=== PATIENT | female | born 1950 | race Caucasian/White ===

== ENCOUNTER 2016-06-05 14:00 | Inpatient (IN) | payer OTHER, MEDICARE ==
[~2016-06-05] VITALS: Ht 167.6 cm; Wt 87.3 kg
[2016-06-21] MEDS ORDERED: MORP1TAB24 PO (09:48)
[2016-06-21] MEDS ORDERED: FLUO20CA4 PO (09:48)
[2016-06-21] MEDS ORDERED: METF500T4 PO (09:48)
[2016-06-21] MEDS ORDERED: HYDR-3583 PO (09:48)
[2016-06-21] MEDS ORDERED: OMEP20TA PO (09:48)
[2016-06-21] MEDS ORDERED: ALPR.25 PO (09:48)
[2016-06-21] MEDS ORDERED: ONDA1TAB16 PO (09:48)
[2016-06-21] MEDS ORDERED: TRIA37.5 PO (09:48)
[2016-06-21] MEDS ORDERED: LOSA50TA PO (09:48)
[2016-07-06] MEDS ORDERED: INSULIN HUMAN REGULAR 1,000 UNITS/10 ML VIAL SQ PRN (07:30)
[2016-07-06] MEDS: CHLORHEXIDINE GLUCONATE 4% SOLN 120 ML BTL TOP SCH (07:30)
[2016-07-06] MEDS: SODIUM CHLORID 0.9% 500 ML IV SCH (07:30)
[2016-07-06] MEDS: LACTATED RINGER'S 1000 ML IV SCH (07:30)
[2016-07-06] MEDS ORDERED: METOPROLOL TARTRATE 25 MG TAB PO PRN (07:30)
[2016-07-06] MEDS ORDERED: ceFAZolin 2 GM PREMIX 50 ML IV SCH (07:30)
[2016-07-06] MEDS ORDERED: VANCOMYCIN 1000 MG/NS 250 ML (for <70 kg) IV SCH ×2 (07:30)
[2016-07-06] MEDS ORDERED: VITA10007 PO (07:35)
[2016-07-06 07:37] VITALS: BP 181/94; PULSE 89; RESP 18; TEMP 97.9; O2SAT 95
[2016-07-06] MEDS ORDERED: GENTAMICIN SULFATE 80 MG/2 ML VIAL ONE (08:30)
[2016-07-06] MEDS ORDERED: ACETAMINOPHEN 1000 MG/100 ML VIAL IV ONE (08:40)
[2016-07-06] MEDS ORDERED: FAMOTIDINE 20 MG/2 ML VIAL ONE (08:40)
[2016-07-06] MEDS ORDERED: ONDANSETRON HCL 4 MG/2 ML VIAL ONE (08:40)
[2016-07-06] MEDS ORDERED: fentaNYL CITRATE 250 MCG/5 ML AMP ONE (08:59)
[2016-07-06] MEDS ORDERED: MIDAZOLAM HCL 2 MG/2 ML VIAL ONE (09:05)
--- NOTE | 2016-07-06 11:28 | HHI.PR ---
Immediate Post Op Note Procedure Date: Jul 06, 2016 Pre Op Diagnosis: L Hip Severe OA Post Op Diagnosis: Same Surgeon: Stanley High MD Redeye Gunner(s): Radha Ricketts PA-C Procedure: L THR Complications: None Specimen(s) removed: L Hip Femoral Head Estimated blood loss: 600cc Anesthesia: General Drains: None Patient to: PACU Patient Condition: Good Implant/Devices: SEE IMPLANT LOG (if applicable) Date/Time of Procedure: SEE SURGICAL CARE RECORD Stanley High MD Jul 06, 2016 11:28
[2016-07-06] MEDS ORDERED: ZOLPIDEM TARTRATE 5 MG TAB PO PRN (11:30)
[2016-07-06] MEDS ORDERED: Post-op Orders (for Pharmacy) MISC XX ONE (11:30)
[2016-07-06] MEDS ORDERED: ACETAMINOPHEN/HYDROcodone 325 MG/10 MG TAB PO PRN (11:30)
[2016-07-06] MEDS ORDERED: ONDANSETRON HCL 4 MG/2 ML VIAL IVP PRN (11:30)
[2016-07-06] MEDS: SODIUM CHLORIDE 0.9% FLUSH 5 ML FLUSH IVF SCH ×2 (11:30→20:57)
[2016-07-06] MEDS ORDERED: SODIUM CHLORIDE 0.9% FLUSH 5 ML FLUSH IVF PRN (11:30)
[2016-07-06] MEDS ORDERED: ALUMINUM/MAGNESIUM/SIMETH 30 ML CUP PO PRN (11:30)
[2016-07-06] MEDS ORDERED: WALKER WHEELS/F1 MIS (11:35)
[2016-07-06] MEDS ORDERED: BEDSIDE COMMODE1 MI1 (11:35)
[2016-07-06] MEDS ORDERED: *morphine SULFATE 8 MG/ML PERIprocedure ONLY ONE ×3 (11:51→12:41)
[2016-07-06] MEDS ORDERED: ONDANSETRON HCL 4 MG/2 ML VIAL IV PUSH ONE (12:00)
[2016-07-06] MEDS ORDERED: NEOSTIGMINE 3 MG/3 ML SYR IV ONE (12:00)
[2016-07-06] MEDS ORDERED: LACTATED RINGER'S 1000 ML INJ 1,000 ML IV ONE (12:00)
[2016-07-06] MEDS ORDERED: PROPOFOL 200 MG/20 ML AMP IV ONE (12:00)
[2016-07-06] MEDS: LACTATED RINGER'S 1000 ML INJ 1,000 ML IV SCH (12:10)
[2016-07-06] MEDS ORDERED: DO NOT ADM ANY ANTICOAGULANT DRUGS XX PRN (12:15)
[2016-07-06] MEDS ORDERED: PILL SPLITTER OTHER PRN (12:30)
[2016-07-06] MEDS: FLUoxetine HCL 20 MG CAP PO SCH ×2 (13:00→16:01)
[2016-07-06] MEDS: ACETAMINOPHEN/HYDROcodone 325 MG/10 MG TAB PO PRN ×2 (14:40→20:53)
[2016-07-06] MEDS: ALPRAZolam 0.25 MG TAB PO PRN (16:01)
--- NOTE | 2016-07-06 16:04 | RADRPT ---
EXAM DATE/TIME: 07/06/2016 12:26 [place] COMPARISON: No previous studies available for comparison. INDICATIONS : Post left hip arthroplasty MEDICAL HISTORY : Arthritis. SURGICAL HISTORY : None. ENCOUNTER: Initial ACUITY: 1 day PAIN SCORE: Non-responsive. LOCATION: Left Hip FINDINGS: A lateral view of the left hip with AP pelvis was obtained. Left total arthroplasty. The femoral and acetabular components are appropriately positioned without fracture. CONCLUSION: Appropriate postoperative appearance of the left hip status post total arthroplasty. Dangelo Lopez MD on July 06, 2016 at 16:01 Board Certified Radiologist. This report was verified electronically.
[2016-07-06 16:12] VITALS: BP 116/69; PULSE 98; RESP 16; TEMP 96.9; O2SAT 97
[2016-07-06 20:23] VITALS: BP 109/57; PULSE 95; RESP 20; TEMP 97.7; O2SAT 92
[2016-07-06] MEDS: MORPHINE SULFATE 15 MG CONTROLLED RELEASE TAB PO SCH (20:52)
[2016-07-06] MEDS: PANTOPRAZOLE SOD 20 MG DELAYED RELEASE TAB PO SCH (20:53)
[2016-07-06] MEDS: metFORMIN HCL 500 MG TAB PO SCH (20:57)
[2016-07-06] MEDS: MORPHINE SULFATE 4 MG/ML INJ IV PRN (23:32)
[2016-07-07] MEDS: SODIUM CHLORID 0.9% 500 ML IV SCH (00:10)
[2016-07-07 00:32] VITALS: BP 130/58; PULSE 96; RESP 20; TEMP 96.7; O2SAT 92
[2016-07-07] MEDS: MORPHINE SULFATE 4 MG/ML INJ IV PRN (04:35)
[2016-07-07 04:45] VITALS: BP 148/67; PULSE 107; RESP 19; TEMP 100.1; O2SAT 93
[2016-07-07 05:55] LABS: HEMATOCRIT 27.3 % (35.0-46.0); REVIEW FLAG FINAL
[2016-07-07 06:03] LABS: INTERNATIONAL NORMALIZED RATIO 1.2 RATIO; PROTHROMBIN TIME - PATIENT 13.4 SEC (9.8-11.6)
[2016-07-07] MEDS: ALPRAZolam 0.25 MG TAB PO PRN ×2 (06:48→14:35)
--- NOTE | 2016-07-07 06:53 | PD.ORT.PN ---
Subjective Subjective Remarks pt complains of post op left hip pain was on morphine and norco pre-operatively Objective Vitals Vital Signs Date Time Temp Pulse Resp B/P Pulse Ox O2 Delivery O2 Flow Rate FiO2 07/07/16 04:45 100.1 107 19 148/67 93 07/07/16 00:32 96.7 96 20 130/58 92 07/06/16 20:23 97.7 95 20 109/57 92 07/06/16 16:12 96.9 98 16 116/69 97 07/06/16 15:15 97.7 102 16 96 Nasal Cannula 2 07/06/16 14:50 Nasal Cannula 2 07/06/16 14:45 99 16 146/77 91 Room Air 07/06/16 14:00 94 16 144/68 94 Room Air 07/06/16 13:45 96 15 109/48 94 Room Air 07/06/16 13:30 96 15 121/68 93 Room Air 07/06/16 13:15 91 15 120/68 97 Nasal Cannula 2 07/06/16 13:00 92 15 124/72 97 Nasal Cannula 2 07/06/16 12:30 87 15 122/62 99 Nasal Cannula 3 07/06/16 12:15 87 15 143/77 99 Nasal Cannula 3 07/06/16 12:00 89 15 136/86 99 Nasal Cannula 3 07/06/16 11:45 99 15 118/81 99 Nasal Cannula 3 07/06/16 11:36 97.4 100 15 145/87 93 Nasal Cannula 4 07/06/16 07:37 97.9 89 18 181/94 95 I/O 07/06/16 07/06/16 07/06/16 07/07/16 07/07/16 07/07/16 06:59 14:59 22:59 06:59 14:59 22:59 Intake Total 1680 ml 400 ml Output Total 950 ml Balance 730 ml 400 ml Intake Oral 240 ml IV Total 280 ml 160 ml Other 1400 ml Output Urine Total 350 ml Estimated Blood Loss 600 ml # Voids 1 1 # Bowel Movements 1 Result Diagram: 07/07/16 0448 Other Results Laboratory Tests Test 07/07/16 04:48 Prothrombin Time 13.4 SEC (9.8-11.6) Prothromb Time International 1.2 RATIO Ratio Objective Remarks also seen by Dr. Stanley High left hip dressings dry and intact canvas knee splint in place no calf tenderness Assessment & Plan Assessment and Plan POD #1 s/p L PEGGY PT-WBAT coumadin for dvt prop- check INR on discharge for dose anticipate d/c to SNF on Sunday, 3007 form and pain rx (norco 10) in chart, also was on morphine pre-operatively Radha Ricketts Jul 07, 2016 06:53
[2016-07-07] MEDS: CHLORHEXIDINE GLUCONATE 4% SOLN 120 ML BTL TOP SCH (07:30)
[2016-07-07] MEDS: LACTATED RINGER'S 1000 ML IV SCH (07:30)
[2016-07-07 08:00] VITALS: BP 126/73; PULSE 116; RESP 18; TEMP 97; O2SAT 94
[2016-07-07] MEDS: ONDANSETRON ODT 4 MG TAB PO PRN ×2 (08:24→21:47)
[2016-07-07] MEDS: LOSARTAN 50 MG TAB PO SCH (08:25)
[2016-07-07] MEDS: ACETAMINOPHEN/HYDROcodone 325 MG/10 MG TAB PO PRN ×3 (08:25→21:45)
[2016-07-07] MEDS: FLUoxetine HCL 20 MG CAP PO SCH ×3 (08:25→17:07)
[2016-07-07] MEDS: PANTOPRAZOLE SOD 20 MG DELAYED RELEASE TAB PO SCH ×2 (08:26→21:43)
[2016-07-07] MEDS: MORPHINE SULFATE 15 MG CONTROLLED RELEASE TAB PO SCH ×2 (08:26→21:44)
[2016-07-07] MEDS: metFORMIN HCL 500 MG TAB PO SCH ×2 (08:27→21:43)
[2016-07-07] MEDS: LACTATED RINGER'S 1000 ML INJ 1,000 ML IV SCH ×2 (08:42)
[2016-07-07] MEDS: SODIUM CHLORIDE 0.9% FLUSH 5 ML FLUSH IVF SCH ×2 (08:42→21:44)
[2016-07-07] MEDS ORDERED: WARFARIN SOD 5 MG TAB PO ONE (11:00)
[2016-07-07 12:00] VITALS: BP 136/66; PULSE 99; RESP 16; TEMP 99.1; O2SAT 96
[2016-07-07] MEDS: TRIAMTERENE/HCTZ 37.5 MG/25 MG TAB PO SCH (12:05)
--- NOTE | 2016-07-07 12:29 | PD.CONS ---
HPI Service [facility] Consult Requested By Primary Care Physician No Primary Care Physician Diagnoses: History of Present Illness 66-year-old female status post right hip replacement today with Dr. Chi. She currently is having no pain. The patient states she has been in good health recently. Review of Systems Except as stated in HPI: all other systems reviewed are Neg Past Family Social History Allergies: Coded Allergies: No Known Allergies (Unverified , 07/06/16) Past Medical History DM type 2 HTN Osteoarthritis Carpal tunnel syndrome Anxiety Family History Reviewed and noncontributory Social History No tobacco Physical Exam Vital Signs Vital Signs Date Time Temp Pulse Resp B/P Pulse Ox O2 Delivery O2 Flow Rate FiO2 07/07/16 08:59 16 07/07/16 08:59 16 07/07/16 08:00 97.0 116 18 126/73 94 07/07/16 04:45 100.1 107 19 148/67 93 07/07/16 00:32 96.7 96 20 130/58 92 07/06/16 20:23 97.7 95 20 109/57 92 07/06/16 16:12 96.9 98 16 116/69 97 07/06/16 15:15 97.7 102 16 96 Nasal Cannula 2 07/06/16 14:50 Nasal Cannula 2 07/06/16 14:45 99 16 146/77 91 Room Air 07/06/16 14:00 94 16 144/68 94 Room Air 07/06/16 13:45 96 15 109/48 94 Room Air 07/06/16 13:30 96 15 121/68 93 Room Air 07/06/16 13:15 91 15 120/68 97 Nasal Cannula 2 07/06/16 13:00 92 15 124/72 97 Nasal Cannula 2 07/06/16 12:30 87 15 122/62 99 Nasal Cannula 3 Physical Exam GENERAL: This is a well-nourished, well-developed patient, in no apparent distress. SKIN: No rashes, ecchymoses or lesions. Cool and dry. HEAD: Atraumatic. Normocephalic. No temporal or scalp tenderness. EYES: Pupils equal round and reactive. Extraocular motions intact. No scleral icterus. No injection or drainage. ENT: Nose without bleeding, purulent drainage or septal hematoma. Throat without erythema, tonsillar hypertrophy or exudate. Uvula midline. Airway patent. NECK: Trachea midline. No JVD or lymphadenopathy. Supple, nontender, no meningeal signs. CARDIOVASCULAR: Regular rate and rhythm without murmurs, gallops, or rubs. RESPIRATORY: Clear to auscultation. Breath sounds equal bilaterally. No wheezes , rales, or rhonchi. GASTROINTESTINAL: Abdomen soft, non-tender, nondistended. No hepato-splenomegaly , or palpable masses. No guarding. MUSCULOSKELETAL: Extremities without clubbing, cyanosis, or edema. No joint tenderness, effusion, or edema noted. No calf tenderness. Negative Homans sign bilaterally. NEUROLOGICAL: Awake and alert. Cranial nerves II through XII intact. Motor and sensory grossly within normal limits. Five out of 5 muscle strength in all muscle groups. Normal speech. Laboratory Laboratory Tests Test 07/07/16 04:48 Hemoglobin 9.1 Hematocrit 27.3 Prothrombin Time 13.4 Prothromb Time International 1.2 Ratio Result Diagram: 07/07/16 0448 Assessment and Plan Assessment and Plan Status post right hip replacement DM type 2 HTN Osteoarthritis Carpal tunnel syndrome Anxiety Anemia of acute blood loss Plan Continue home medications. Monitor sugars and blood pressure. Follow CBC DVT prophylaxis per orthopedic surgery. Thank you for the consult. Hazel Ferguson MD Jul 07, 2016 12:29
[2016-07-07] MEDS ORDERED: WARFARIN SOD 5 MG TAB PO SCH (16:00)
[2016-07-07 16:30] VITALS: BP 112/59; PULSE 109; RESP 18; TEMP 100.4; TEMP 99.4; O2SAT 92
[2016-07-07 20:00] VITALS: BP 112/57; PULSE 104; RESP 18; TEMP 100.5; O2SAT 91
[2016-07-07] MEDS: DOCUSATE SODIUM 100 MG CAP PO SCH (21:44)
[2016-07-07] MEDS: MAGNESIUM HYDROXIDE SUSP 30 ML CUP PO SCH (21:48)
[2016-07-07] MEDS: POLYETHYLENE GLYCOL 17 GM PKG PO SCH (21:51)
[2016-07-07] MEDS: BISACODYL EC 5 MG TABEC PO SCH (21:51)
[2016-07-08] VITALS: BP 120/57; PULSE 99; RESP 16; TEMP 99.4; O2SAT 95
[2016-07-08] MEDS: LACTATED RINGER'S 1000 ML INJ 1,000 ML IV SCH ×3 (01:00→21:24)
[2016-07-08 05:09] LABS: INTERNATIONAL NORMALIZED RATIO 1.7 RATIO; PROTHROMBIN TIME - PATIENT 18.7 SEC (9.8-11.6)
[2016-07-08] MEDS: ALPRAZolam 0.25 MG TAB PO PRN ×2 (05:33→21:29)
--- NOTE | 2016-07-08 07:10 | PD.ORT.PN ---
Subjective Subjective Remarks POD 2 s/p left PEGGY doing well. reports pain in hip but improving. states has not been walking or out of bed yet Objective Vitals Vital Signs Date Time Temp Pulse Resp B/P Pulse Ox O2 Delivery O2 Flow Rate FiO2 07/08/16 00:00 99.4 99 16 120/57 95 07/07/16 20:00 100.5 104 18 112/57 91 07/07/16 16:30 99.4 07/07/16 16:30 100.4 109 18 112/59 92 07/07/16 12:00 99.1 99 16 136/66 96 07/07/16 08:59 16 07/07/16 08:59 16 07/07/16 08:00 97.0 116 18 126/73 94 I/O 07/07/16 07/07/16 07/07/16 07/08/16 07/08/16 07/08/16 07:00 15:00 23:00 07:00 15:00 23:00 Intake Total 240 ml 600 ml 780 ml 240 ml Balance 240 ml 600 ml 780 ml 240 ml Intake Oral 240 ml 600 ml 780 ml 240 ml # Voids 2 3 2 1 # Bowel Movements 0 0 0 0 Result Diagram: 07/07/16 0448 Other Results Laboratory Tests Test 07/08/16 03:49 Prothrombin Time 18.7 SEC (9.8-11.6) Prothromb Time International 1.7 RATIO Ratio Objective Remarks LLE: dressings clean and dry. intact. NVI. neg karishma Assessment & Plan Assessment and Plan POD #2 s/p L PEGGY PT-WBAT coumadin for dvt prop- check INR on discharge for dose anticipate d/c to SNF on Sunday, 3007 form and pain rx (norco 10) in chart, also was on morphine pre-operatively f/u with Dr Stanley High in 2 weeks Vic Tyler Jul 08, 2016 07:10
[2016-07-08] MEDS: CHLORHEXIDINE GLUCONATE 4% SOLN 120 ML BTL TOP SCH (07:30)
[2016-07-08] MEDS: LACTATED RINGER'S 1000 ML IV SCH (07:30)
[2016-07-08 08:42] VITALS: BP 115/59; PULSE 104; RESP 18; TEMP 97.3; O2SAT 95
[2016-07-08] MEDS: BISACODYL EC 5 MG TABEC PO SCH ×2 (08:44→21:29)
[2016-07-08] MEDS: metFORMIN HCL 500 MG TAB PO SCH ×2 (08:44→21:29)
[2016-07-08] MEDS: FLUoxetine HCL 20 MG CAP PO SCH ×3 (08:44→16:40)
[2016-07-08] MEDS: TRIAMTERENE/HCTZ 37.5 MG/25 MG TAB PO SCH (08:44)
[2016-07-08] MEDS: PANTOPRAZOLE SOD 20 MG DELAYED RELEASE TAB PO SCH ×2 (08:44→21:29)
[2016-07-08] MEDS: LOSARTAN 50 MG TAB PO SCH (08:44)
[2016-07-08] MEDS: SODIUM CHLORIDE 0.9% FLUSH 5 ML FLUSH IVF SCH ×2 (08:44→21:00)
[2016-07-08] MEDS: DOCUSATE SODIUM 100 MG CAP PO SCH ×2 (08:44→21:29)
[2016-07-08] MEDS: MORPHINE SULFATE 15 MG CONTROLLED RELEASE TAB PO SCH ×2 (08:45→21:30)
[2016-07-08] MEDS: ONDANSETRON ODT 4 MG TAB PO PRN (08:54)
[2016-07-08] MEDS: ACETAMINOPHEN/HYDROcodone 325 MG/10 MG TAB PO PRN ×3 (11:00→23:36)
[2016-07-08 11:39] VITALS: BP 110/55; PULSE 104; RESP 17; TEMP 99.4; O2SAT 93
[2016-07-08 16:00] VITALS: BP 116/71; PULSE 105; RESP 16; TEMP 98.6; O2SAT 99
[2016-07-08] MEDS: WARFARIN SOD 5 MG TAB PO SCH (16:00)
[2016-07-08 20:00] VITALS: BP 114/36; PULSE 97; RESP 20; TEMP 98.6; O2SAT 95
[2016-07-08] MEDS: MAGNESIUM HYDROXIDE SUSP 30 ML CUP PO SCH (21:00)
[2016-07-08] MEDS: POLYETHYLENE GLYCOL 17 GM PKG PO SCH (21:00)
[2016-07-09] VITALS: BP 116/56; PULSE 99; RESP 20; TEMP 98.1; O2SAT 94
[2016-07-09] MEDS: ACETAMINOPHEN/HYDROcodone 325 MG/10 MG TAB PO PRN ×2 (05:31→11:34)
[2016-07-09 05:51] LABS: INTERNATIONAL NORMALIZED RATIO 1.5 RATIO; PROTHROMBIN TIME - PATIENT 17.1 SEC (9.8-11.6)
--- NOTE | 2016-07-09 06:45 | PD.ORT.PN ---
Subjective Subjective Remarks POD 3 s/p left PEGGY doing well. reports pain in hip but improving. was out of bed yesterday. walked to commode. Objective Vitals Vital Signs Date Time Temp Pulse Resp B/P Pulse Ox O2 Delivery O2 Flow Rate FiO2 07/09/16 00:00 98.1 99 20 116/56 94 07/08/16 20:00 98.6 97 20 114/36 95 07/08/16 16:00 98.6 105 16 116/71 99 07/08/16 11:39 99.4 104 17 110/55 93 07/08/16 08:42 97.3 104 18 115/59 95 I/O 07/08/16 07/08/16 07/08/16 07/09/16 07/09/16 07/09/16 07:00 15:00 23:00 07:00 15:00 23:00 Intake Total 240 ml 720 ml 780 ml 240 ml Balance 240 ml 720 ml 780 ml 240 ml Intake Oral 240 ml 720 ml 780 ml 240 ml # Voids 1 3 2 2 # Bowel Movements 0 0 0 Result Diagram: 07/07/16 0448 Other Results Laboratory Tests Test 07/09/16 04:50 Prothrombin Time 17.1 SEC (9.8-11.6) Prothromb Time International 1.5 RATIO Ratio Objective Remarks LLE: dressings clean and dry. intact. NVI. neg karishma Assessment & Plan Assessment and Plan POD #3 s/p L PEGGY PT-WBAT coumadin for dvt prop- check INR on discharge for dose anticipate d/c to SNF on Sunday, 3008 form and pain rx (norco 10) in chart, also was on morphine pre-operatively f/u with Dr Stanley High in 2 weeks Vic Tyler Jul 09, 2016 06:45
[2016-07-09] MEDS: LACTATED RINGER'S 1000 ML IV SCH (07:24)
[2016-07-09 08:00] VITALS: BP 136/58; PULSE 100; RESP 18; TEMP 98.5; O2SAT 96
[2016-07-09] MEDS: FLUoxetine HCL 20 MG CAP PO SCH ×2 (08:43→13:48)
[2016-07-09] MEDS: BISACODYL EC 5 MG TABEC PO SCH (08:43)
[2016-07-09] MEDS: metFORMIN HCL 500 MG TAB PO SCH (08:43)
[2016-07-09] MEDS: DOCUSATE SODIUM 100 MG CAP PO SCH (08:43)
[2016-07-09] MEDS: TRIAMTERENE/HCTZ 37.5 MG/25 MG TAB PO SCH (08:43)
[2016-07-09] MEDS: PANTOPRAZOLE SOD 20 MG DELAYED RELEASE TAB PO SCH (08:43)
[2016-07-09] MEDS: LOSARTAN 50 MG TAB PO SCH (08:43)
[2016-07-09] MEDS: ALPRAZolam 0.25 MG TAB PO PRN (08:43)
[2016-07-09] MEDS: MORPHINE SULFATE 15 MG CONTROLLED RELEASE TAB PO SCH (08:44)
[2016-07-09] MEDS: ONDANSETRON ODT 4 MG TAB PO PRN (08:45)
[2016-07-09] MEDS: SODIUM CHLORIDE 0.9% FLUSH 5 ML FLUSH IVF SCH (08:47)
[2016-07-09] MEDS: LACTATED RINGER'S 1000 ML INJ 1,000 ML IV SCH (08:48)
[2016-07-09 12:00] VITALS: BP 144/69; PULSE 102; RESP 18; TEMP 98.5; O2SAT 99
--- NOTE | 2016-07-09 12:56 | HHI.PR ---
Subjective Remarks Patient was having quite a bit of anxiety yesterday, less today, improved with xanax. +BM. Hip pain controlled. Objective Vitals Vital Signs Date Time Temp Pulse Resp B/P Pulse Ox O2 Delivery O2 Flow Rate FiO2 07/09/16 08:00 98.5 100 18 136/58 96 07/09/16 00:00 98.1 99 20 116/56 94 07/08/16 20:00 98.6 97 20 114/36 95 07/08/16 16:00 98.6 105 16 116/71 99 I/O 07/08/16 07/08/16 07/08/16 07/09/16 07/09/16 07/09/16 07:00 15:00 23:00 07:00 15:00 23:00 Intake Total 240 ml 720 ml 780 ml 240 ml Balance 240 ml 720 ml 780 ml 240 ml Intake Oral 240 ml 720 ml 780 ml 240 ml # Voids 1 3 2 2 # Bowel Movements 0 0 0 Result Diagram: 07/07/16 0448 Objective Remarks GENERAL: Well-nourished, well-developed very pleasant female patient. SKIN: Warm and dry. HEAD: Normocephalic. EYES: No scleral icterus. No injection or drainage. NECK: Supple, trachea midline. No JVD or lymphadenopathy. CARDIOVASCULAR: Regular rate and rhythm. 2/6 early systolic murmur loudest at apex. RESPIRATORY: Breath sounds equal and CTA bilaterally. No accessory muscle use. GASTROINTESTINAL: Abdomen soft, non-tender, nondistended. EXTREMITIES: No cyanosis, or edema. b/l old vertical knee scars. patient shows me hip flexion b/l to about 40 degrees. NEUROLOGICAL: Awake, alert, and oriented x 3. Non-focal. A/P Problem List: (1) Osteoarthritis of left hip ICD Code: M16.12 Status: Acute (2) Anxiety ICD Code: F41.9 Status: Acute (3) Heart murmur ICD Code: R01.1 Status: Acute (4) HTN (hypertension) ICD Code: I10 Status: Acute (5) DM type 2 (diabetes mellitus, type 2) ICD Code: E11.9 Status: Acute (6) Postoperative anemia due to acute blood loss ICD Code: D62 Status: Acute Assessment and Plan Status post right hip replacement DM type 2 HTN Osteoarthritis Carpal tunnel syndrome Anxiety Anemia of acute blood loss Heart murmur - systolic - patient states her PCP is aware of murmur and she follows with road roller operator Dr. Partida but is not sure she has had en echocardiogram or not. she was unable to complete a preop nuclear stress test due to anxiety and says she is supposed to see card again. Plan On coumadin for DVT px. Has heart murmur - encouraged her to f/u withi Dr. Abel after DC from [facility]. Will continue her home meds at [facility], refill xanax and pain meds. Thank you for the consult. Hazel Ferguson MD Jul 09, 2016 12:56
[2016-07-09] MEDS ORDERED: MORP1TAB24 PO (12:57)
[2016-07-09] MEDS ORDERED: ALPR.25 PO (12:57)
[2016-07-09] MEDS ORDERED: COUM5TAB PO (13:02)
[2016-07-09] MEDS: WARFARIN SOD 5 MG TAB PO SCH (14:44)
--- NOTE | 2016-07-10 06:46 | MP ---
cc: MYRON HIGH M.D., LYDIA T. MD DATE OF OPERATION July 06, 2016 PREOPERATIVE DIAGNOSIS Left hip severe osteoarthritis. POSTOPERATIVE DIAGNOSIS Left hip severe osteoarthritis. PROCEDURE Left total hip arthroplasty. SURGEON Brianna High MD ASSESSMENT Radha Ricketts, PAC SPECIMENS Left hip femoral head and neck. ESTIMATED BLOOD LOSS 600 cc COMPLICATIONS None. ANESTHESIA General DRAINS None. CONDITION Stable. PLAN OF ACTIVITY Per orders. PROCEDURE My shipping and receiving assistant, Radha Ricketts PA-C, was present for the entire surgical case. She was medically necessary for the entire case because of the complexity of the case and to facilitate the performance of the procedure. The ROLLED OATS MILL OPERATOR at the back table was not of the skill set for this case, to manipulate the instruments e.g. the multiple different soft tissue retractors, trial implants and permanent implants. The patient was brought into the operating room and had satisfactory general endotracheal anesthesia by Dr. Han of the Department of Anesthesia. The patient was placed in the lateral decubitus position. The left hip and lower extremity down to and including the toes were prepped and draped in the usual sterile manner. A small posterior lateral hip exposure was made. All bleeders were coagulated. Dissection continued through the skin and subcutaneous tissue. The fascia blanche and gluteus farzad was incised in line with the skin incision, a Charnley retractor placed into the wound in order to allow better exposure. Hip external rotators were removed as a group. Hip abductors were preserved. Capsulotomy was performed of the hip. The patient was found to have osteoarthritis involving the left hip. The hip was dislocated posteriorly, osteotomy made on the femoral neck at the appropriate level. Exposure of the acetabulum was made. The patient was found to have multiple osteocartilaginous loose bodies within the hip joint itself. The hip capsule and labrum was surgically excised. Using hemispherical reamers the hip was sequentially reamed to 50 mm in outer diameter. Trial reduction was made with the bicentric cup in Press-Fit type manner and was found to be stable and satisfactory. Attention was now brought to the femoral stem. Using the BiomTSO3 Taperloc system, it was sequentially broached to a #7.5 broach. Reduction was done with a -3 neck. The patient was found to have satisfactory stability, satisfactory range of motion, satisfactory limb lengths. Trial components were removed. The hip was irrigated with copious amounts of sterile saline irrigation. Using a Biomet Taperloc stem, the 7.5 prosthesis was placed in approximately 15 degrees of anteversion. The patient was found to have an excellent "fit and fill". The neck was placed onto the trunnion. A 28-mm ball hip was reduced again. Again, the patient was found to have satisfactory limb lengths, satisfactory stability and satisfactory range of motion. The wound was irrigated with copious amounts of sterile saline. The wound itself was dry. The short external rotators were repaired back to the greater trochanter with drill holes using #2 Ticron suture. The fascia blanche and gluteus farzad was closed with #2 Ticron suture. The subcutaneous tissue was closed in layers with 0 Vicryl and 2-0 Vicryl suture, the skin approximated with running subcuticular 2-0 nylon stitch. Instrument, sponge and sharp counts were correct after the operation. The patient tolerated the procedure well and arrived in the recovery room in stable and satisfactory condition. MD FAUSTO Puente/SSB /11:19 AM /6:30 AM
--- NOTE | 2016-07-18 11:41 | HHI.DS ---
Discharge Summary Admission Date Jul 06, 2016 at 06:43 Discharge Date: Jul 09, 2016 Admitting Diagnosis Left hip osteoarthritis Diagnosis: (1) Osteoarthritis of left hip Diagnosis: Principal Procedures Left total hip arthroplasty Brief History This is a 66 year old female patient who presents with the following history. Patient took a fall before . She had onset of pain involving her left hip to the point she could hardly ambulate. She began to use a walker. She was already under the care of pain management and on morphine and norco medications. She states the pain did not wear off and she has had continued pain involving left hip and difficulty walking and with ADLS. Imaging x-rays left hip show severe osteoarthritis, joint space narrowing PE at Discharge LLE: dressings clean and dry. intact. NVI. [facility] Course 66 year old female presents with the following history. Patient underwent left total hip arthroplasty on the date of admission. She was treated with low dose coumadin night before procedure and will be continued to be treated with low dose coumadin for four weeks post-operatively. She was started with full weight bearing ambulation on pod #1. She was also treated with knee high TEDS and sequentials during the stay. Medical was consulted and followed patient during stay. She was discharged to a SNF for further therapy and nursing care on pod # 3 in stable condition. Pt Condition on Discharge: Stable Discharge Disposition: Discharge to SNF Discharge Instructions Diet Instructions: Coumadin (Warfarin) Diet Activities You Can Perform: Weight Bearing as Rdaha Ortiz Jul 18, 2016 11:41
== END 2016-07-09 15:23 | DRG 470 ==
LOC: HSDI 07-06 06:43 → N06A 07-06 15:35
PROVIDERS: ADMIT Orthopaedic Surgery Orthopaedic Surgery of the Spine; ATTEND Orthopaedic Surgery Orthopaedic Surgery of the Spine
PROC: 0SRB0JA Replacement of Left Hip Joint with Synthetic Substitute, Uncemented, Open Approach (ICD-10-PCS; principal; 2016-07-06 09:40)
DX: M16.12 Unilateral primary osteoarthritis, left hip (principal); I10 Essential (primary) hypertension; D62 Acute posthemorrhagic anemia; E11.9 Type 2 diabetes mellitus without complications; F41.9 Anxiety disorder, unspecified; R01.1 Cardiac murmur, unspecified
CPT/HCPCS: 36415; 73501; 82948; 85014; 85018; 85610; 86850; 86900; 86901; 86920; 88304; 88305; 88311; 94150; C1776; J0131; J0690; J1580; J2250; J2270; J2405; J2710; J3010; J7120; L1830